=== PATIENT | female | born 1985 | race African-American/Black ===

== ENCOUNTER 2016-10-22 07:56 | Outpatient (CLI) | payer BC | END 2016-10-22 19:05 | disposition home or self-care (01) | LOC: RAD 07:56 | DX: R10.9 Unspecified abdominal pain (principal) ==

== ENCOUNTER 2018-06-05 18:29 | Outpatient (CLI) | payer OTHER | END 2018-06-05 18:33 | disposition short-term general hospital (02) | LOC: AMB 18:29 | DX: M79.662 Pain in left lower leg (principal); M25.552 Pain in left hip; V49.9XXA Car occupant (driver) (passenger) injured in unspecified traffic accident, initial encounter; Y93.89 Activity, other specified; Y92.89 Other specified places as the place of occurrence of the external cause | CPT/HCPCS: A0425; A0429 ==

== ENCOUNTER 2018-06-05 18:34 | Emergency (ER) | payer OTHER ==
[~2018-06-05] VITALS: Ht 147.3 cm; Wt 59.0 kg
[2018-06-05 22:14] VITALS: BP 118/71; TEMP 98.1
== END 2018-06-05 22:15 | disposition home or self-care (01) ==
LOC: ED 18:34
DX: M25.552 Pain in left hip (principal); M79.605 Pain in left leg; V53.6XXA Passenger in pick-up truck or van injured in collision with car, pick-up truck or van in traffic accident, initial encounter
CPT/HCPCS: 99283

== ENCOUNTER 2019-02-19 15:38 | Outpatient (CLI) | payer OTHER | END 2019-02-19 21:55 | disposition home or self-care (01) | LOC: LAB 15:38 | DX: R19.7 Diarrhea, unspecified (principal) | CPT/HCPCS: 83630; 87015; 87045; 87324; 87328; 87329; 87449; 87899 ==

== ENCOUNTER 2019-09-03 10:38 | Outpatient (CLI) | payer OTHER ==
[2019-09-03 11:03] LABS: POTASSIUM 3.9 mmol/L (3.6-5.2)
== END 2019-09-03 20:13 | disposition home or self-care (01) ==
LOC: LABW 10:38
PROVIDERS: Nurse Practitioner Family
DX: R10.31 Right lower quadrant pain (principal)
CPT/HCPCS: 36415; 80053; Q9963

== ENCOUNTER 2019-09-14 08:29 | Outpatient (CLI) | payer OTHER | END 2019-09-14 20:36 | disposition home or self-care (01) | LOC: NM 08:29 | DX: R10.9 Unspecified abdominal pain (principal); K80.20 Calculus of gallbladder without cholecystitis without obstruction; R11.0 Nausea; K59.00 Constipation, unspecified | CPT/HCPCS: A9537 ==